=== PATIENT | male | born 1955 | race Caucasian/White ===

== ENCOUNTER 2018-09-21 21:07 | Emergency (ER) | payer OTHER ==
[2018-09-21 22:40] LABS: Absolute Lymphocytes (CBC) 1.2 K/uL (0.7-4.9); Absolute Monocytes 0.5 K/uL (0.1-1.3); Absolute Neutrophil 7.7 K/uL (1.8-8.0); Basophils % 0.5 % (0-1.3); Hematocrit 31.8 % (39.6-49.0); Lymphocytes % 12.5 % (15.3-44.8); MPV 7.6 fL (7.6-11.3); RBC Red Blood Cell Count 3.58 M/uL (4.33-5.43)
[2018-09-21] MEDS ORDERED: ONDANSETRON 4 MG/2 ML VIAL ONE ×2 (22:44→23:22)
[2018-09-21] MEDS ORDERED: NA CHLORIDE 0.9% 1,000 ML ONE (22:44)
[2018-09-21] MEDS ORDERED: FAMOTIDINE 20 MG/2 ML VIAL IV ONE (22:44)
[2018-09-21 22:57] LABS: Albumin 3.8 g/dL (3.4-5.0); Bilirubin Direct 0.1 mg/dL (0-0.2); Bilirubin Total 0.5 mg/dL (0.2-1.0); Potassium 4.1 mmol/L (3.5-5.1); Protein, Total 8.5 g/dL (6.4-8.2)
[2018-09-21] MEDS ORDERED: PROMETHAZINE 25 MG/ML VIAL ONE (23:51)
[2018-09-22 00:42] LABS: Urine Blood 1+ (NEG); Urine Glucose NEGATIVE (NEG); Urine Protein TRACE (NEG); Urine pH 5.5 (5.0-7.0)
[2018-09-22 00:43] LABS: Urine Bacteria <20 /HPF (NONE SEEN); Urine Culture Reflex Order NOT NEEDED; Urine RBC <5 /HPF (NONE SEEN); Urine Sperm PRESENT (NONE SEEN)
[2018-09-22] MEDS ORDERED: ONDANSETRON 4 MG/2 ML VIAL ONE (02:13)
--- NOTE | 2018-09-22 03:57 | EDPHYS ---
Physician Documentation [facility] Name: Deion Schrader Age: 63 yrs Sex: Male : 1955 Arrival Date: 09/21/2018 Time: 21:13 Bed 23 Private MD: Taye Stephens T ED Physician Boyd Mckenzie HPI: 09/21 22:05 This 63 yrs old Male presents to ER via Ambulatory with complaints of cp Dizziness, Nausea. 22:05 The patient presents to the emergency department with vomiting, that is intermittent, cp described as bilious, abdominal pain, of the abdomen diffusely. 22:05 Onset: The symptoms/episode began/occurred today. Associated signs and symptoms: cp Pertinent positives: anorexia, nausea, Pertinent negatives: constipation, diarrhea, fever, GI bleeding. Severity of symptoms: in the emergency department the symptoms are unchanged despite home interventions. Historical: - Allergies: 21:19 Dilaudid; aj - PMHx: 21:19 Diabetes - IDDM; Hypertension; scoliosis; aj - PSHx: 21:19 back; aj - Immunization history:: Adult Immunizations up to date. - Social history:: Smoking status: Patient/guardian denies using tobacco. - Ebola Screening: : Patient negative for fever greater than or equal to 101.5 degrees Fahrenheit, and additional compatible Ebola Virus Disease symptoms Patient denies exposure to infectious person Patient denies travel to an Ebola-affected area in the 21 days before illness onset No symptoms or risks identified at this time. ROS: 22:12 Constitutional: Positive for chills, poor PO intake, Negative for body aches, fever. cp 22:12 Eyes: Negative for injury, pain, redness, and discharge. cp 22:12 ENT: Negative for drainage from ear(s), ear pain, sore throat, difficulty swallowing, difficulty handling secretions. 22:12 Cardiovascular: Negative for chest pain, edema, palpitations. 22:12 Respiratory: Negative for cough, dyspnea on exertion, shortness of breath, wheezing. 22:12 Abdomen/GI: Positive for abdominal pain, nausea, vomiting, anorexia, Negative for diarrhea, constipation, hematemesis, black/tarry stool, rectal bleeding. 22:12 Back: Negative for radiated pain. 22:12 : Negative for urinary symptoms, flank pain, testicular pain 22:12 Skin: Negative for cellulitis, rash. 22:12 Neuro: Positive for dizziness, Negative for altered mental status, headache, syncope, weakness. 22:12 All other systems are negative. Exam: 22:15 Constitutional: The patient appears in no acute distress, alert, awake, cp non-diaphoretic, non-toxic, well developed, well nourished, uncomfortable. 22:15 Head/Face: Normocephalic, atraumatic. cp 22:15 Eyes: Periorbital structures: appear normal, Conjunctiva: normal, no exudate, no cp injection, Sclera: no appreciated abnormality, Lids and lashes: appear normal, bilaterally. 22:15 ENT: External ear(s): are unremarkable, Nose: is normal, Mouth: Lips: moist, Oral cp mucosa: pink and intact, moist, Posterior pharynx: is normal, airway is patent, no erythema, no exudate. 22:15 Chest/axilla: Inspection: normal, Palpation: is normal, no crepitus, no tenderness. 22:15 Cardiovascular: Rate: normal, Rhythm: regular, Edema: is not appreciated, JVD: is not appreciated. 22:15 Respiratory: the patient does not display signs of respiratory distress, Respirations: normal, no use of accessory muscles, no retractions, no splinting, no tachypnea, labored breathing, is not present, Breath sounds: are clear throughout, no decreased breath sounds, no stridor, no wheezing. 22:15 Abdomen/GI: Inspection: abdomen appears normal, Bowel sounds: active, all quadrants, Palpation: soft, in all quadrants, moderate abdominal tenderness, in all quadrants, rebound tenderness, is not appreciated, involuntary guarding, is not appreciated. 22:15 Back: CVA tenderness, is absent. 22:15 Skin: cellulitis, is not appreciated, no rash present. 22:15 Neuro: Orientation: to person, place \T\ time. Mentation: is normal, Cerebellar function: is grossly normal, Motor: moves all fours, strength is normal, Sensation: is normal. Vital Signs: 21:19 BP 148 / 81; Pulse 88; Resp 20; Temp 97.5; Pulse Ox 100% on R/A; Weight 106.59 kg; aj Height 5 ft. 10 in. (177.80 cm); 22:45 BP 169 / 86; Pulse 59; Resp 18; Pulse Ox 100% on R/A; tl3 23:27 BP 178 / 68; Pulse 59; Resp 18; Pulse Ox 99% on R/A; tl3 09/22 01:32 BP 171 / 86; Pulse 62; Resp 17; Pulse Ox 100% on R/A; Pain 7/10; ed1 02:56 BP 163 / 81; Pulse 76; Resp 17; Pulse Ox 100% on R/A; Pain 6/10; ed1 04:06 BP 147 / 84; Pulse 82; Resp 16 S; Temp 98.7(O); Pulse Ox 99% on R/A; bb 09/21 21:19 Body Mass Index 33.72 (106.59 kg, 177.80 cm) aj MDM: 09/21 21:42 Patient medically screened. cp 23:00 Differential diagnosis: gastritis, cholecystitis, pancreatitis, appendicitis, cp diverticulitis, viral gastroenteritis, gastroenteritis. 09/22 03:55 Data reviewed: vital signs, nurses notes, lab test result(s), radiologic studies, CT cp scan, plain films. 03:55 Counseling: I had a detailed discussion with the patient and/or guardian regarding: the cp historical points, exam findings, and any diagnostic results supporting the discharge/admit diagnosis, lab results, radiology results, to return to the emergency department if symptoms worsen or persist or if there are any questions or concerns that arise at home. Response to treatment: the patient's symptoms have markedly improved after treatment, VSS. Vomiting resolved and nausea improved. CT abdomen/pelvis negative for acute findings. Will discharge to home for continued monitoring. 09/21 21:56 Order name: Basic Metabolic Panel; Complete Time: 23:21 cp 09/22 00:51 Interpretation: Normal except: GLUC 146; BUN 19; CRE 1.64; GFR 43. cp 09/21 21:56 Order name: CBC with Diff; Complete Time: 23:21 cp 09/22 00:52 Interpretation: Normal except: RBC 3.58; HGB 11.1; HCT 31.8; LYM% 12.5; VICENTE% 81.0. cp 09/21 21:56 Order name: Creatinine for Radiology; Complete Time: 23:21 cp 09/21 21:56 Order name: Hepatic Function; Complete Time: 23:21 cp 09/21 21:56 Order name: Lipase; Complete Time: 23:21 cp 09/21 21:56 Order name: Urine Microscopic Only; Complete Time: 00:49 cp 09/22 00:49 Interpretation: Normal except: SPERM PRESENT. cp 09/21 21:56 Order name: XRAY Chest (1 view) cp 09/21 21:56 Order name: Influenza Screen (a \T\ B); Complete Time: 00:49 cp 09/21 23:22 Order name: CT Abd/Pelvis - Without Cont: give oral contrast cp 09/22 00:26 Order name: Urine Dipstick--Ancillary (enter results); Complete Time: 00:49 em1 01 00:49 Interpretation: Normal except: UBLD 1+. cp 09/21 21:56 Order name: IV Saline Lock; Complete Time: 22:32 cp 09/21 21:56 Order name: Labs collected and sent; Complete Time: 22:33 cp 09/21 21:56 Order name: Urine Dipstick-Ancillary (obtain specimen); Complete Time: 00:25 cp Administered Medications: 09/21 22:43 Drug: NS 0.9% 500 ml Route: IV; Rate: bolus; Site: right antecubital; Delivery: Primary tl3 tubing; 23:56 Follow up: IV Status: Completed infusion; IV Intake: 500ml tl3 22:44 Drug: Zofran 4 mg Route: IVP; Infused Over: 2 mins; Site: right antecubital; tl3 22:48 Follow up: Response: No adverse reaction tl3 22:44 Drug: Pepcid 20 mg Route: IVP; Infused Over: 2 mins; Site: right antecubital; tl3 22:48 Follow up: Response: No adverse reaction tl3 23:16 Drug: Zofran 4 mg Route: IVP; Infused Over: 2 mins; Site: right antecubital; tl3 23:54 Follow up: Response: Nausea unchanged tl3 23:30 Drug: NS 0.9% 1000 ml Route: IV; Rate: 100 ml/hr; Site: right antecubital; Delivery: tl3 Primary tubing; 23:53 Drug: Phenergan 25 mg Route: IVP; Infused Over: 5 mins; Site: right antecubital; tl3 23:56 Follow up: Response: No adverse reaction tl3 09/22 01:45 Drug: NS 0.9% 500 ml Route: IV; Rate: bolus; Site: right antecubital; ed1 02:11 Follow up: IV Status: Completed infusion; IV Intake: 500ml ed1 02:05 Drug: Zofran 4 mg Route: IVP; Site: right antecubital; ed1 03:00 Follow up: Response: Nausea is decreased bb Disposition: 21:28 Co-signature as Attending Physician, Boyd Mckenzie MD I agree with the assessment and wa plan of care. Disposition: 09/22/18 03:57 Discharged to Home. Impression: Nausea and vomiting. - Condition is Stable. - Discharge Instructions: Dehydration, Adult, Clear Liquid Diet, Adult, Nausea and Vomiting, Adult. - Prescriptions for Phenergan 25 mg Rectal Suppository - insert 1 suppository by RECTAL route every 6 hours As needed; 12 suppository. promethazine 25 mg Oral Tablet - take 1 tablet by ORAL route every 6 hours As needed; 20 tablet. Bentyl 20 mg Oral Tablet - take 1 tablet by ORAL route every 6 hours As needed; 20 tablet. Zofran 4 mg Oral Tablet - take 1 tablet by ORAL route every 12 hours As needed; 20 tablet. - Medication Reconciliation Form, Thank You Letter, Antibiotic Education, Prescription Opioid Use form. - Follow up: Taye Stephens MD; When: 1 - 2 days; Reason: Recheck today's complaints. - Problem is new. - Symptoms have improved. Signatures: Dispatcher [employer] [facility] Dominique Gonzales RN Laura Foster RN RN Kaylan Calvo, RETURNED ITEM CLERK RETURNED ITEM CLERK ed1 Deondre Rivero PA PA cp Appiah, William, MD MD wa Lowrey, Tammy, RN RN tl3 Corrections: (The following items were deleted from the chart) 09/21 23:43 22:19 Abdomen Pelvis W Con+CT.RAD.BRZ ordered. [facility] EDAR 09/22 00:52 00:51 Normal except: RBC 3.58; HGB 11.1; HCT 31.8. cp cp 04:07 03:57 09/22/2018 03:57 Discharged to Home. Impression: Nausea and vomiting. Condition bb is Stable. Forms are Medication Reconciliation Form, Thank You Letter, Antibiotic Education, Prescription Opioid Use. Follow up: Taye Stephens; When: 1 - 2 days; Reason: Recheck today's complaints. Problem is new. Symptoms have improved. cp
--- NOTE | 2018-09-22 03:57 | ER ---
Nurse's Notes [facility] Name: Deion Schrader Age: 63 yrs Sex: Male : 1955 Arrival Date: 09/21/2018 Time: 21:13 Bed 23 Private MD: Taye Stephens T Diagnosis: Nausea and vomiting Presentation: 09/21 21:18 Presenting complaint: Patient states: Vomiting that started today. Transition of care: aj patient was not received from another setting of care. Onset of symptoms was September 21, 2018. Risk Assessment: Do you want to hurt yourself or someone else? Patient reports no desire to harm self or others. Initial Sepsis Screen: Does the patient meet any 2 criteria? No. Patient's initial sepsis screen is negative. Does the patient have a suspected source of infection? No. Patient's initial sepsis screen is negative. Care prior to arrival: None. 21:18 Method Of Arrival: Ambulatory 21:18 Acuity: MANUEL 3 aj Triage Assessment: 21:19 General: Appears in no apparent distress. comfortable, Behavior is calm, cooperative, aj appropriate for age. Pain: Denies pain. Neuro: Level of Consciousness is awake, alert, obeys commands, Oriented to person, place, time, situation, Appropriate for age. Respiratory: Airway is patent Respiratory effort is even, unlabored, Respiratory pattern is regular, symmetrical. GI: Reports nausea, vomiting. Derm: Skin is intact, is healthy with good turgor, Skin is pink, warm \T\ dry. normal. Historical: - Allergies: 21:19 Dilaudid; aj - PMHx: 21:19 Diabetes - IDDM; Hypertension; scoliosis; aj - PSHx: 21:19 back; aj - Immunization history:: Adult Immunizations up to date. - Social history:: Smoking status: Patient/guardian denies using tobacco. - Ebola Screening: : Patient negative for fever greater than or equal to 101.5 degrees Fahrenheit, and additional compatible Ebola Virus Disease symptoms Patient denies exposure to infectious person Patient denies travel to an Ebola-affected area in the 21 days before illness onset No symptoms or risks identified at this time. Screenin:45 Abuse screen: Denies threats or abuse. Nutritional screening: No deficits noted. tl3 Tuberculosis screening: No symptoms or risk factors identified. Fall Risk None identified. Assessment: 22:45 General: Appears distressed, uncomfortable, well groomed, well developed, well tl3 nourished, Behavior is cooperative, appropriate for age, anxious. Pain: Complains of pain in abdomen. Neuro: Level of Consciousness is awake, alert, obeys commands, Oriented to person, place, time, situation, Appropriate for age. Cardiovascular: Patient's skin is warm and dry. Respiratory: Airway is patent Respiratory effort is even, unlabored, Respiratory pattern is regular, symmetrical. GI: Abdomen is round Pt is actively vomiting bile. GI: Reports diarrhea, nausea, vomiting, since Sunday. : No signs and/or symptoms were reported regarding the genitourinary system. EENT: No signs and/or symptoms were reported regarding the EENT system. Derm: No signs and/or symptoms reported regarding the dermatologic system. Musculoskeletal: No signs and/or symptoms reported regarding the musculoskeletal system. 23:27 Reassessment: No changes from previously documented assessment. pt continues to be tl3 nauseated and unable to drink contrast, second dose of Zofran administered. 09/22 01:32 Reassessment: Patient appears in no apparent distress at this time. No changes from ed1 previously documented assessment. Patient and/or family updated on plan of care and expected duration. Pain level reassessed. Patient is alert, oriented x 3, equal unlabored respirations, skin warm/dry/pink. Pt finished oral contrast for CT. 02:56 Reassessment: Patient appears in no apparent distress at this time. No changes from ed1 previously documented assessment. Patient and/or family updated on plan of care and expected duration. Pain level reassessed. Patient is alert, oriented x 3, equal unlabored respirations, skin warm/dry/pink. Patient states symptoms have not improved. 03:49 Reassessment: Patient is alert, oriented x 3, equal unlabored respirations, skin bb warm/dry/pink. pt is ambulating in hallway states he is cold, awaiting CT scan report. 04:05 Reassessment: pt verbalized understanding of and agrees to plan of care discharge bb instructions given pt ambulated with steady gait to exit accompanied by spouse. Vital Signs: 09/21 21:19 BP 148 / 81; Pulse 88; Resp 20; Temp 97.5; Pulse Ox 100% on R/A; Weight 106.59 kg; aj Height 5 ft. 10 in. (177.80 cm); 22:45 BP 169 / 86; Pulse 59; Resp 18; Pulse Ox 100% on R/A; tl3 23:27 BP 178 / 68; Pulse 59; Resp 18; Pulse Ox 99% on R/A; tl3 09/22 01:32 BP 171 / 86; Pulse 62; Resp 17; Pulse Ox 100% on R/A; Pain 7/10; ed1 02:56 BP 163 / 81; Pulse 76; Resp 17; Pulse Ox 100% on R/A; Pain 6/10; ed1 04:06 BP 147 / 84; Pulse 82; Resp 16 S; Temp 98.7(O); Pulse Ox 99% on R/A; bb 09/21 21:19 Body Mass Index 33.72 (106.59 kg, 177.80 cm) ED Course: 09/21 21:13 Patient arrived in ED. ds1 21:13 Taye Stephens MD is Private Physician. ds1 21:18 Triage completed. aj 21:19 Arm band placed on left wrist. Patient placed in waiting room. aj 21:42 Deondre Rivero PA is PHCP. cp 21:42 Boyd Mckenzie MD is Attending Physician. cp 22:32 Mackenzie Austin, CHRISTAL is Primary Nurse. tl3 22:32 XRAY Chest (1 view) In Process Unspecified. EDMS 22:45 Patient has correct armband on for positive identification. Bed in low position. Call tl3 light in reach. Side rails up X 1. Adult w/ patient. political science faculty member on. Pulse ox on. 22:45 No provider procedures requiring assistance completed. Initial lab(s) drawn, by sc, tl3 sent to lab. X-ray(s) taken. Inserted saline lock: 20 gauge in right antecubital area, using aseptic technique. Blood collected. 23:11 Radiology exam delayed due to Patient unable to drink oral contrast due to nausea. kw1 Spoke with attending nurse and was advised that patient will be given Zofran after which an attempt will be made to have patient drink contrast. 23:43 Radiology exam delayed due to Patient still nauseous. Unable to drink oral contrast at kw1 this time. Phenergan to be given per Deondre Page after which an attempt to have patient drink contrast will be made. If patient is unable to tolerate oral contrast - will do the exam without - per Deondre Page. 09/22 01:29 Primary Nurse role handed off by Mackenzie Austin RN ed1 01:29 Kaylan Rudolph LVN is Primary Nurse. ed1 01:[address] Scan. ed1 02:[address] via wheelchair. kw1 02:36 CT Abd/Pelvis - Without Cont: give oral contrast In Process Unspecified. EDMS 02:37 CT completed. Patient tolerated procedure well. Patient moved back from CT. kw1 02:53 Primary Nurse role handed off by Kaylan Rudolph LVN ed1 03:00 Report given to Laura Heller RN. ed1 03:57 Taye Stephens MD is Referral Physician. cp 04:06 IV discontinued, intact, bleeding controlled, No redness/swelling at site. Pressure bb dressing applied. Administered Medications: 09/21 22:43 Drug: NS 0.9% 500 ml Route: IV; Rate: bolus; Site: right antecubital; Delivery: Primary tl3 tubing; 23:56 Follow up: IV Status: Completed infusion; IV Intake: 500ml tl3 22:44 Drug: Zofran 4 mg Route: IVP; Infused Over: 2 mins; Site: right antecubital; tl3 22:48 Follow up: Response: No adverse reaction tl3 22:44 Drug: Pepcid 20 mg Route: IVP; Infused Over: 2 mins; Site: right antecubital; tl3 22:48 Follow up: Response: No adverse reaction tl3 23:16 Drug: Zofran 4 mg Route: IVP; Infused Over: 2 mins; Site: right antecubital; tl3 23:54 Follow up: Response: Nausea unchanged tl3 23:30 Drug: NS 0.9% 1000 ml Route: IV; Rate: 100 ml/hr; Site: right antecubital; Delivery: tl3 Primary tubing; 23:53 Drug: Phenergan 25 mg Route: IVP; Infused Over: 5 mins; Site: right antecubital; tl3 23:56 Follow up: Response: No adverse reaction tl3 09/22 01:45 Drug: NS 0.9% 500 ml Route: IV; Rate: bolus; Site: right antecubital; ed1 02:11 Follow up: IV Status: Completed infusion; IV Intake: 500ml ed1 02:05 Drug: Zofran 4 mg Route: IVP; Site: right antecubital; ed1 03:00 Follow up: Response: Nausea is decreased bb Intake: 01 23:56 IV: 500ml; Total: 500ml. tl3 01/ 02:11 IV: 500ml; Total: 1000ml. ed1 Outcome: 03:57 Discharge ordered by MD. danna 04:06 Discharged to home ambulatory, with family. bb 04:06 Condition: stable 04:06 Discharge instructions given to patient, Instructed on discharge instructions, follow up and referral plans. medication usage, Demonstrated understanding of instructions, follow-up care, medications, Prescriptions given X 4. 04:07 Patient left the ED. bb Signatures: Dispatcher [employer] EDMS Dominique Gonzales, RN Starr King ds1 Laura Heller RN RN Kaylan Calvo, BOOK CLEANER BOOK CLEANER ed1 Deondre Rivero PA PA cp Wilhelm, Kimberly kw1 Mackenzie Austin, RN RN tl3
--- NOTE | 2018-09-22 10:00 | RAD REPORT ---
EXAM DESCRIPTION: CT - Abdomen Pelvis Wo Contrast - 09/22/2018 4:56 am CLINICAL HISTORY: Abdominal pain. ABD PAIN COMPARISON: Abdomen Pelvis Wo Contrast dated 09/20/2016 TECHNIQUE: CT imaging of the abdomen and pelvis was performed without contrast. Solid organ, bowel a nd vascular assessment is limited due to lack of IV and oral contrast. All CT scans are performed using dose optimization technique as appropriate and may include automated exposure control or mA/KV adjustment according to patient size. FINDINGS: The lower lung webb are clear.Cholecystectomy clips. The liver, spleen, pancreas, adrenal glands and kidneys are within normal limits for a limited non-co ntrast examination. No bowel obstruction, free air, free fluid or abscess. Small bilateral fat containing inguinal hernia s. The appendix is normal. Postsurgical changes of fusion with hardware in place in the spine. IMPRESSION: No acute intra-abdominal or pelvic findings. A limited non-contrast examination was performed as detailed.
--- NOTE | 2018-09-22 10:28 | RAD REPORT ---
EXAM DESCRIPTION: RAD - Chest Single View - 09/21/2018 10:35 pm CLINICAL HISTORY: vomiting Chest pain. COMPARISON: Chest Single View dated 09/26/2016; Chest Single View dated 09/23/2016; Chest Single View d ated 09/21/2016; Chest Single View dated 09/20/2016 FINDINGS: Portable technique limits examination quality. The lungs are grossly clear. The heart is normal in size. Advanced dextroscoliosis of the thoracic sp ine with hardware in place. IMPRESSION: Advanced thoracic dextroscoliosis.
== END 2018-09-22 04:07 | disposition home or self-care (01) ==
LOC: ER 21:07
DX: R11.2 Nausea with vomiting, unspecified (principal)
CPT/HCPCS: 36415; 71045; 74176; 80048; 80076; 81003; 81015; 83690; 85025; 87804; 96361; 96374; 96375; 99285; J2405; J2550; J7030